=== PATIENT | male | born 1960 | race Caucasian/White ===

== ENCOUNTER 2022-09-22 09:30 | Outpatient (AMB) | payer OTHER, SELFPAY ==
--- NOTE | 2022-09-22 09:35 | MHC.OFFWIV ---
Intake Vital Signs 09/22/22 09:36 Height 6 ft Weight 226 lb BMI 30.6 BP 126/74 Blood Pressure Location Lt brachial Position Sitting Pulse 74 Pulse Source Pulse Oximeter Temp 97.9 F Temp Source Temporal Artery Scan Pulse Oximetry (%) 98 Intake Visit Reasons: EST/poison maite Intake Note: pt is here for c/o poisin maite Patient Tobacco Use Status: Never used Tobacco Allergies No Known Allergies Allergy (Verified 09/22/22 10:20) Medication List - Last Reconciled 09/22/22 by Tirso Cunningham MD No Known Home Meds Do you need a note to return to daycare/school/sports/work: Yes HPI EST/poison maite HPI Details 61-year-old male presents to the office for a sick visit. He has a rash on the left side of his abdomen, in his lower legs. Rash started a few days ago. Predominant symptom is itchiness. He has been working out in the yard. [facility] Social History Patient Tobacco Use Status: Never used Tobacco Physical Exam Vital Signs: Last Vital Signs Temp 97.9 F 09/22/22 09:36 Pulse 74 09/22/22 09:36 BP 126/74 09/22/22 09:36 Pulse Ox 98 09/22/22 09:36 BMI result Body Mass Index 30.6 Skin Other: Erythematous rash on the left side of the abdomen, excoriating scratch casillas, no vesicles or pustules Assessment & Plan Assessment & Plan (1) Plant dermatitis: Code(s): L25.5 - Unspecified contact dermatitis due to plants, except food Plan: Prednisone 60 mg on taper dose. Encouraged to use calamine lotion. If symptoms not better to follow-up here. Coding Level of Care Code Est Pt Level 3 (20651) Diagnoses Plant dermatitis L25.5
[2022-09-22 09:36] VITALS: BP 126/74; PULSE 74; TEMP 36.6; O2SAT 98; BMI 30.6
== END 2022-09-22 10:53 | disposition home or self-care (01) ==
PROVIDERS: PCP Internal Medicine; Visit Provider Internal Medicine
DX: L25.5 Unspecified contact dermatitis due to plants, except food (principal)
CPT/HCPCS: 99213